=== PATIENT | female | born 1940 | race Two or more races ===

== ENCOUNTER → 2023-07-31 | Outpatient (CLI) | payer OTHER ==
[2023-07-31 08:28] LABS: Basophils # (auto) 0.1 10 ^3/uL (0-0.2); Eosinophils # (auto) 0.3 10 ^3/uL (0-0.8); Eosinophils % (auto) 4.3 % (0.0-7.0); Mean Corpuscular Hemoglobin 21.2 pg (28.0-32.0); Nucleated Red Blood Cells % 0.1 %
[2023-07-31 08:29] LABS: Basophils % (auto) 1.3 % (0.0-2.0); Hematocrit 38.4 % (36.0-46.0); Lymphocytes % (auto) 27.4 % (10.0-50.0); Mean Corpuscular Hgb Conc. 31.3 g/dL (32.0-36.0); Mean Corpuscular Volume 67.7 fL (80.0-100.0); Monocytes # (auto) 0.4 10 ^3/uL (0-1.3); Monocytes % (auto) 6.2 % (0.0-12.0); Neutrophils # (auto) 4.4 10 ^3/uL (1.6-8.6); Neutrophils % (auto) 60.8 % (37.0-80.0); Red Blood Cells 5.68 10^6/uL (4.0-5.20); White Blood Cell 7.2 10^3/uL (4.4-10.8)
[2023-07-31 08:33] LABS: Red Cell Distribution Width 22.1 % (11.8-14.3)
[2023-07-31 08:35] LABS: Urine Amorphous Crystal FEW /hpf (None Seen); Urine Bacteria FEW /hpf (None Seen); Urine Blood 1+ /uL (Negative); Urine Clarity HAZY (Clear); Urine Color Yellow (Yellow); Urine Mucus FEW (None Seen); Urine Protein, UAD TRACE (Negative); Urine Specific Gravity 1.019 (1.001-1.035); Urine Urobilinogen Normal (Negative); Urine WBC 8 /hpf (0 - 5); Urine pH 5.5 (5.0-8.0)
[2023-07-31 08:52] LABS: Platelet Estimate Adequate
[2023-07-31 08:54] LABS: Anisocytosis Slight; Hypochromia Moderate; Ovalocytes FEW; Stomatocytes Few; Tear Drop Cells FEW
[2023-07-31 09:25] LABS: Alanine Aminotransferase 32 U/L (7-40); Alkaline Phosphatase 132 U/L (46-116); Anion Gap 10 (5-15); Blood Urea Nitrogen 11 mg/dL (9-23); Calcium 9.7 mg/dL (8.5-10.1); Carbon Dioxide 23 mmol/L (20-30); Chloride 107 mmol/L (98-107); Potassium 3.9 mmol/L (3.5-5.1); Sodium 140 mmol/L (136-145)
[2023-07-31 09:26] LABS: BUN/Creatinine Ratio 14.7 (10.0-20.0); Glucose 124 mg/dL (74-106); T3 Total 1.31 ng/mL (0.60-1.81)
[2023-07-31 09:27] LABS: Folate (Folic Acid) > 24.00 ng/mL (>5.38); LDL Cholesterol 98 mg/dL (< 100); Triglycerides 122 mg/dL (< 150)
[2023-07-31 09:28] LABS: % Iron Saturation 8.5 % (15-50); Albumin 4.5 g/dL (3.2-4.8); Aspartate Aminotransferase 19 U/L (13-40); Cholesterol 158 mg/dL (< 200); Creatine Kinase IFCC 57 U/L (34-145); HDL Cholesterol 47 mg/dL (40-59)
[2023-07-31 09:29] LABS: Bilirubin, Total 0.4 mg/dL (0.2-1.0); Ferritin 6.1 ng/mL (10-291); Total Protein 7.2 g/dL (5.7-8.2)
== END | disposition home or self-care (01) ==
LOC: LAB 07:57
PROVIDERS: ATTEND Internal Medicine
DX: Z00.00 Encounter for general adult medical examination without abnormal findings (principal); D64.9 Anemia, unspecified
CPT/HCPCS: 36415; 80053; 80061; 81001; 82306; 82550; 82607; 82728; 82746; 83540; 83550; 84436; 84443; 84480; 85025; 87086

== ENCOUNTER → 2024-06-30 | Outpatient (CLI) | payer OTHER ==
[2024-06-30 08:31] LABS: Urine Bacteria None Seen /hpf (None Seen)
[2024-06-30 08:35] LABS: Urine Blood Negative /uL (Negative); Urine Clarity Clear (Clear); Urine Color Yellow (Yellow); Urine Mucus FEW (None Seen); Urine Protein, UAD TRACE (Negative); Urine Urobilinogen Normal (Negative); Urine WBC 2 /hpf (0 - 5); Urine pH 5.5 (5.0-9.0)
[2024-06-30 10:00] LABS: Alanine Aminotransferase 24 U/L (7-40); Albumin 4.6 g/dL (3.2-4.8); Alkaline Phosphatase 142 U/L (46-116); Anion Gap 10 (5-15); Aspartate Aminotransferase 14 U/L (13-40); BUN/Creatinine Ratio 18.9 (10.0-20.0); Blood Urea Nitrogen 14 mg/dL (9-23); Carbon Dioxide 24 mmol/L (20-31); Chloride 106 mmol/L (98-107); Cholesterol 171 mg/dL (< 200); Creatine Kinase IFCC 41 U/L (34-145); Glucose 135 mg/dL (74-106); HDL Cholesterol 45 mg/dL (40-59); LDL Cholesterol 112 mg/dL (< 100); Potassium 4.1 mmol/L (3.5-5.1); Sodium 140 mmol/L (136-145); Triglycerides 160 mg/dL (< 150)
[2024-06-30 10:01] LABS: Bilirubin, Total 0.5 mg/dL (0.2-1.0); Total Protein 7.4 g/dL (5.7-8.2)
[2024-06-30 10:27] LABS: % Iron Saturation 6.5 % (15-50)
[2024-06-30 10:52] LABS: Ferritin 4.7 ng/mL (10-291); T3 Total 1.34 ng/mL (0.60-1.81)
[2024-06-30 11:07] LABS: Folate (Folic Acid) 31.98 ng/mL (>5.38)
[2024-07-01 08:06] LABS: Thyroxine (T4) 7.5 ug/dL (4.5-12.0)
== END | disposition home or self-care (01) ==
LOC: LAB 08:13
PROVIDERS: ATTEND Internal Medicine
DX: Z00.01 Encounter for general adult medical examination with abnormal findings (principal); Z79.899 Other long term (current) drug therapy; Z86.2 Personal history of diseases of the blood and blood-forming organs and certain disorders involving the immune mechanism
CPT/HCPCS: 36415; 80053; 80061; 81001; 82306; 82550; 82607; 82728; 82746; 83540; 83550; 84075; 84080; 84436; 84443; 84480

== ENCOUNTER → 2024-10-21 | Outpatient (CLI) | payer OTHER ==
[2024-10-21 08:43] LABS: Eosinophils # (auto) 0.3 10 ^3/uL (0-0.8); Lymphocytes # (auto) 1.8 10 ^3/uL (0.4-5.4); Mean Corpuscular Hemoglobin 24.8 pg (28.0-32.0); Neutrophils # (auto) 4.6 10 ^3/uL (1.6-8.6)
[2024-10-21 08:47] LABS: Basophils # (auto) 0.1 10 ^3/uL (0-0.2); Hematocrit 42.2 % (36.0-46.0); Hemoglobin 13.9 g/dL (12.2-16.2); Lymphocytes % (auto) 24.7 % (10.0-50.0); Mean Corpuscular Hgb Conc. 32.9 g/dL (32.0-36.0); Mean Corpuscular Volume 75.5 fL (80.0-100.0); Monocytes # (auto) 0.4 10 ^3/uL (0-1.3); Monocytes % (auto) 5.9 % (0.0-12.0); Neutrophils % (auto) 64.4 % (37.0-80.0); Nucleated Red Blood Cells % 0.1 %; Platelet Count (auto) 240 10^3/uL (140-450); Red Blood Cells 5.59 10^6/uL (4.0-5.20); Red Cell Distribution Width 27.8 % (11.8-14.3); White Blood Cell 7.2 10^3/uL (4.4-10.8)
[2024-10-21 09:02] LABS: Urine Bacteria FEW /hpf (None Seen); Urine Blood 1+ /uL (Negative); Urine Clarity Turbid (Clear); Urine Color Dark-Yellow (Yellow); Urine Mucus FEW (None Seen); Urine Protein, UAD Negative (Negative); Urine Squamous Epithelial Cell FEW /hpf (<5); Urine Urobilinogen Normal (Negative); Urine WBC 3 /HPF (0-5); Urine pH 5.5 (5.0-9.0)
[2024-10-21 09:10] LABS: Anisocytosis Slight; Ovalocytes FEW
[2024-10-21 09:11] LABS: Platelet Estimate Adequate
[2024-10-21 09:17] LABS: Alanine Aminotransferase 32 U/L (7-40); Albumin 4.7 g/dL (3.2-4.8); Anion Gap 6 (5-15); Aspartate Aminotransferase 21 U/L (13-40); BUN/Creatinine Ratio 14.8 (10.0-20.0); Bilirubin, Total 0.4 mg/dL (0.2-1.0); Blood Urea Nitrogen 12 mg/dL (9-23); Calcium 10.4 mg/dL (8.7-10.4); Carbon Dioxide 26 mmol/L (20-31); Chloride 107 mmol/L (98-107); Cholesterol 132 mg/dL (< 200); Creatine Kinase IFCC 44 U/L (34-145); HDL Cholesterol 43 mg/dL (40-59); LDL Cholesterol 76 mg/dL (< 100); Potassium 4.5 mmol/L (3.5-5.1); Sodium 139 mmol/L (136-145); Total Protein 7.1 g/dL (5.7-8.2); Triglycerides 140 mg/dL (< 150)
[2024-10-21 09:24] LABS: Alkaline Phosphatase 137 U/L (46-116)
[2024-10-21 09:33] LABS: Glucose 123 mg/dL (74-106)
[2024-10-21 10:25] LABS: Ferritin 35.6 ng/mL (10-291)
[2024-10-21 10:48] LABS: Folate (Folic Acid) > 48.00 ng/mL (>5.38)
[2024-10-21 10:51] LABS: Uric Acid 6.1 mg/dL (3.1-7.8)
[2024-10-21 11:03] LABS: % Iron Saturation 62.3 % (15-50)
== END | disposition home or self-care (01) ==
LOC: LAB 07:56
PROVIDERS: ATTEND Internal Medicine
DX: D64.9 Anemia, unspecified (principal); E78.5 Hyperlipidemia, unspecified; R79.9 Abnormal finding of blood chemistry, unspecified; M16.9 Osteoarthritis of hip, unspecified; Z79.899 Other long term (current) drug therapy
CPT/HCPCS: 36415; 80053; 80061; 81001; 82306; 82550; 82607; 82728; 82746; 83036; 83540; 83550; 84550; 85025; 87086